=== PATIENT | female | born 2000 | race Two or more races ===

== ENCOUNTER 2023-07-31 18:24 | Emergency (ER) | payer SELFPAY ==
[2023-07-31 18:31] VITALS: BP 114/74; PULSE 77; RESP 18; TEMP 36.6; O2SAT 100
--- NOTE | 2023-07-31 18:43 | ED.SKABFB ---
HPI - Skin/Abscess/Foreign Bdy General Chief complaint: Skin/Abscess/Foreign Body Stated complaint: face red Time Seen by Provider: 07/31/23 18:43 Source: patient Mode of arrival: ambulatory Limitations: no limitations History of Present Illness HPI narrative: 23-year-old female presents with complaint of redness, warmth to bilateral ears and face starting around 2:00 p.m.. Has mild itching. Started to left ear and spread. Has not taking any Benadryl to treat symptoms. Concern for allergic reaction. Denies use of any new products, clothing, chemicals. All systems reviewed and negative except as noted above. Related Data Allergies Allergy/AdvReac Type Severity Reaction Status Date / Time No Known Allergies Allergy Verified 07/31/23 18:38 Review of Systems Review of Systems: CONSTITUTIONAL: Denies fever, chills, or sweats. EYES: Denies visual changes, redness, or discharge. ENT: Denies rhinorrhea, congestion, sore throat, or otalgia. CARDIOVASCULAR: Denies chest pain, palpitations, or edema. RESPIRATORY: Denies cough or dyspnea. GASTROINTESTINAL: Denies abdominal pain, nausea, vomiting, or diarrhea. GENITOURINARY: Denies dysuria or hematuria. SKIN: Reports redness, warmth and itching to face and bilateral ears. MUSCULOSKELETAL: Denies back pain, joint pain, or myalgia. NEUROLOGIC: Denies headache, numbness, or weakness. PSYCHIATRIC: Denies anxiety or depression. All other systems reviewed are negative, except as documented in HPI. PMFSH Comments At time of signature, agree with nursing past medical, surgical, social and family history. There is no relevant family history pertinent to the presenting complaint. Exam Narrative: GENERAL: This is a well-nourished, well-developed patient, in no apparent distress. HEAD: normocephalic, atraumatic. EYES: PERRL. Sclera clear/white. Vision is grossly intact. EARS: Bilateral external ears slightly swollen with redness and warmth. NOSE: External nose normal NECK: Neck supple, non-tender without lymphadenopathy, masses or thyromegaly. CARDIOVASCULAR: Regular rate and rhythm without murmurs, gallops, or rubs. RESPIRATORY: Clear to auscultation. Breath sounds equal bilaterally. No wheezes, rales, or rhonchi. SKIN: warm, Dry, intact with no suspicious lesions, good texture and turgor. erytema and warm to face, no vesicles, papules NEURO: awake, alert, and oriented to person, place and time. There were no obvious focal neurologic abnormalities. EXTREMITIES: No joint tenderness, effusion, or edema noted. Course Course Level of Care: [facility] Visit Vital Signs Vital signs: Vital Signs Temperature 36.6 C 07/31/23 18:31 Pulse Rate 77 07/31/23 18:31 Respiratory Rate 18 07/31/23 18:31 Blood Pressure 114/74 07/31/23 18:31 Pulse Oximetry 100 07/31/23 18:31 Oxygen Delivery Room Air 07/31/23 18:31 Temperature 36.6 C 07/31/23 18:31 Pulse Rate 77 07/31/23 18:31 Respiratory Rate 18 07/31/23 18:31 Blood Pressure 114/74 07/31/23 18:31 Pulse Oximetry 100 07/31/23 18:31 Oxygen Delivery Room Air 07/31/23 18:31 reviewed MDM - Skin/Abscess/Foreign Bdy MDM Narrative Medical decision making narrative: Patient is aware of diagnosis, understands and agrees to treatment plan. Anticipatory guidance given. Patient agrees to follow-up as directed and is aware of reasons to seek care at the emergency department. Portions of this record may have been created with voice recognition software Discharge Plan Discharge Clinical Impression: Allergic reaction Qualifiers: Encounter type: initial encounter Qualified Code(s): T78.40XA - Allergy, unspecified, initial encounter Patient Disposition: Home, Self-Care Condition: Stable Instructions: General Allergic Reaction (ED) Additional Instructions: Take medications as prescribed to treat allergic reaction. You were given prednisone and Benadryl at [facility]. Do not take an
[2023-07-31] MEDS: diphenhydrAMINE HCl CAP 25 MG CAPSULE 50 MG PO (18:51)
[2023-07-31] MEDS: predniSONE 20 MG TABLET 40 MG PO (18:52)
== END 2023-07-31 19:21 | disposition home or self-care (01) ==
PROVIDERS: Emergency Provider Nurse Practitioner Family
DX: L53.9 Erythematous condition, unspecified (principal); T78.40XA Allergy, unspecified, initial encounter
CPT/HCPCS: 99213; A9270; G0463; J7512

== ENCOUNTER 2024-04-25 19:29 | Emergency (ER) | payer OTHER, SELFPAY ==
[2024-04-25 19:36] VITALS: BP 128/73; PULSE 82; RESP 20; TEMP 36.9; O2SAT 100
--- NOTE | 2024-04-25 19:36 | ED.GENADULT ---
HPI - General Adult General Chief complaint: Extremity Injury, Upper Stated complaint: Left shoulder pain Time Seen by Provider: 04/25/24 19:36 Source: patient, RN notes reviewed and old records reviewed Mode of arrival: ambulatory Limitations: no limitations History of Present Illness HPI narrative: 23-year-old female to [facility] with complaint of intermittent left posterior shoulder pain since yesterday. Patient reports taking Tylenol at to treat symptoms. Patient denies injury, pertinent history, numbness, tingling, weakness, chest pain. Patient comfortable however very anxious in exam room, tearful. Patient states that she looked up her symptoms online and states she is very concerned about her heart. Patient denies cardiac history, shortness of breath, prescription medications, allergies. Related Data Home Medications Medication Instructions Recorded Confirmed No Home Medications 04/25/24 04/25/24 Allergies Allergy/AdvReac Type Severity Reaction Status Date / Time No Known Allergies Allergy Verified 04/25/24 19:37 Review of Systems Review of Systems: All systems reviewed & are unremarkable except as noted in HPI and below Constitutional: Constitutional: Reports no additional constitutional complaints Eyes: Eyes: Reports no additional eye complaints ENT: Reports system reviewed and no additional complaints, except as documented Cardiovascular: Cardiovascular: Reports no additional cardiovascular complaints, Denies chest pain and Denies dyspnea Respiratory: Respiratory: Reports no additional respiratory complaints, Denies cough and Denies dyspnea Musculoskeletal: Musculoskeletal: Reports as per HPI and Reports other ( left posterior shoulder pain) Neurologic: Reports system reviewed and no additional complaints, except as documented Psychiatric: Psychiatric: Reports no additional psychiatric complaints PMFSH Comments At the time of my signature, I reviewed and agree with the nursing past medical, surgical, social, and family history. There is no relevant family history pertinent to the patient complaint. Exam Const: General: cooperative, healthy appearing, no acute distress, well developed, alert, awake, Physically active, anxious, well groomed and well nourished Nutritional Appearance: well nourished Orientation/consciousness: patient oriented x3 Limitations: no limitations HENMT: Head: normal to inspection Ears: external ears normal Face/Nose/Sinus: Normal external nose present, Normal nares present, normal facial exam, No erythema and No edema Face and sinus: normal facial exam, no erythema and no edema Mouth: Yes Normal oral and palatal mucosa present Eyes: General: appearance normal, both eyes and all related structures Neck: Neck: normal visual inspection, full ROM and no meningeal signs Chest: Chest palpation & inspection: normal inspection of the chest Resp: Effort & Inspection: normal respiratory effort and able to speak in complete sentences Auscultation: clear to auscultation bilaterally Cardio: Jugular venous distension: no JVD Rate: regular rate Rhythm: regular rhythm Back/Spine/Pelvis: Cervical Spine: cervical ROM normal Skin: General skin exam: normal color, no rashes or lesions noted and turgor normal Neuro: General: patient oriented x3, gait normal, moves all extremities and no meningeal signs Speech: normal speech Gait exam (Neuro): Normal gait present Extrem: General: normal to inspection, full ROM and capillary refill normal Left upper extremity: normal to inspection, full ROM, normal capillary refill and shoulder/upper arm inspection abnormal; no tenderness, no swelling, no abrasions, no lacerations, no ecchymosis, no crepitus, no deformity and no unsual warmth; no cyanosis, no edema and joint enlargement noted Psych: Appearance: grossly normal and well kempt Course Course Emergency Course: Some parts of this dictation were generated by [employer]
== END 2024-04-25 20:00 | disposition home or self-care (01) ==
PROVIDERS: Emergency Provider Nurse Practitioner Family
DX: S46.912A Strain of unspecified muscle, fascia and tendon at shoulder and upper arm level, left arm, initial encounter (principal); X58.XXXA Exposure to other specified factors, initial encounter
CPT/HCPCS: 99212; G0463